=== PATIENT | male | born 1945 ===

== ENCOUNTER 2017-05-12 08:32 | Observation (INO) | payer MEDICARE ==
[2017-05-12] MEDS ORDERED: Nitroglycerin 2% Ointment Foilpak UD TOP ONE (09:17)
[2017-05-12] MEDS: Nitroglycerin 2% 15 INCH/30 GM TUBE TOP STA ×2 (09:21→09:42)
--- NOTE | 2017-05-12 09:29 | ED PDOC ---
HPI: Chest Pain Time Seen by Provider: 05/12/17 09:00 Chief Complaint (Nursing): Chest Pain Chief Complaint (Provider): Substernal Chest Pain History Per: Patient History/Exam Limitations: no limitations Onset/Duration Of Symptoms: Days (x24 hours) Current Symptoms Are (Timing): Still Present Pain Scale Rating Of: 5 Quality: "Pain" Associated Symptoms: denies: Nausea, Diaphoresis Modifying Factors: None Alleviating Factors: None Additional Complaint(s): Joseph Madera, a 71 year old male, presents to the ED complaining of substernal chest pain that radiates to the left arm x24 hours. The patient reports that the pain started at sleep and had been intermittent. denies shortness of breath, nausea, diaphoresis. Past Medical History Reviewed: Historical Data, Nursing Documentation, Vital Signs Vital Signs: Last Vital Signs Temp Pulse Resp BP Pulse Ox 98 05/12/17 09:37 - Medical History PMH: Arthritis - Surgical History Surgical History: No Surg Hx - Family History Family History: States: Unknown Family Hx - Social History Current smoker - smoking cessation education provided: No Ex-Smoker (has not smoked in the last 12 months): No Alcohol: None Drugs: Denies - Immunization History Hx Tetanus Toxoid Vaccination: No - Home Medications Home Medications: Ambulatory Orders Medication Instructions Recorded No Known Home Med 05/12/17 - Allergies Allergies/Adverse Reactions: Allergies Allergy/AdvReac Type Severity Reaction Status Date / Time No Known Allergies Allergy Verified 05/12/17 08:42 Review of Systems ROS Statement: Except As Marked, All Systems Reviewed And Found Negative Cardiovascular: Positive for: Chest Pain (substernal chest pain radiating to left arm) Respiratory: Negative for: Shortness of Breath Gastrointestinal: Negative for: Nausea Physical Exam - Reviewed Nursing Documentation Reviewed: Yes Vital Signs Reviewed: Yes - Physical Exam Appears: Positive for: Non-toxic, No Acute Distress Head Exam: Positive for: ATRAUMATIC, NORMAL INSPECTION, NORMOCEPHALIC Skin: Positive for: Normal Color, Warm, Dry. Negative for: Rash Eye Exam: Positive for: Normal appearance, EOMI, PERRL. Negative for: Nystagmus ENT: Positive for: Normal ENT Inspection. Negative for: Nasal Congestion, Tonsillar Exudate, Tonsillar Swelling Neck: Positive for: Normal, Painless ROM, Supple Cardiovascular/Chest: Positive for: Regular Rate, Rhythm, Chest Non Tender. Negative for: Tachycardia Respiratory: Positive for: Normal Breath Sounds. Negative for: Rales, Rhonchi, Wheezing, Respiratory Distress Gastrointestinal/Abdominal: Positive for: Normal Exam, Bowel Sounds, Soft. Negative for: Tenderness, Mass, Guarding, Rebound Back: Positive for: Normal Inspection. Negative for: L CVA Tenderness, R CVA Tenderness Lymphatic: Positive for: Normal Exam. Negative for: Adenopathy Neurologic/Psych: Positive for: Alert, Oriented, Gait - ECG O2 Sat by Pulse Oximetry: 98 (RA) Pulse Ox Interpretation: Normal Medical Decision Making Medical Decision Makin Initial Plan 71 y/o female presenting with chest pain r/o CAD r/o ACS Initial Plan: * EKG * CMP * Troponin * Udip * CBC * CXR * Aspirin 325mg PO * Nitro-Bid 20% 1 inch TOP * Admit 0923 * Reevaluation Scribe Attestation Documented by Natividad Barnes acting as a scribe for José Luis Gaston MD. Provider Attestation All medical record entries made by the Scribe were at my direction and personally dictated by me. I have reviewed the chart and agree that the record accurately reflects my personal performance of the history, physical exam, medical decision making, and the department course for this patient. I have also personally directed, reviewed, and agree with the discharge instructions and disposition. Disposition - Clinical Impression Clinical Impression: Chest pain - Patient ED Disposition Is Patient to be Admitted: Yes - Disposition Disposition Time: 09:39 Condition: FAIR Forms: [employer] (Macedonian) - Pt Status Changed To: Hospital Disposition Of: Observation - POA Present On Arrival: None
[2017-05-12] MEDS ORDERED: Nitroglycerin 2% Ointment Foilpak UD TOP STA (09:35)
[2017-05-12 10:14] LABS: BASO % 0.3 % (0.0-2.0); EOS # 0.3 K/uL (0.0-0.7); EOS % 3.3 % (0.0-4.0); HEMATOCRIT 45.2 % (35.0-51.0); LYMPH # 3.2 K/uL (1.0-4.3); LYMPH % 35.2 % (20.0-40.0); MEAN CELL VOLUME 84.8 fl (80.0-94.0); MEAN CORPUSCULAR HEMOGLOBIN 27.4 pg (27.0-31.0); MEAN CORPUSCULAR HGB CONC 32.3 g/dL (33.0-37.0); MEAN PLATELET VOLUME 8.5 fl (7.2-11.7); MONO # 0.9 K/uL (0.0-0.8); MONO % 9.5 % (0.0-10.0); NEUT # 4.7 K/uL (1.8-7.0); NEUT % 51.7 % (50.0-75.0); NRBC % 0.2 % (0.0-0.0); RED CELL DISTRIBUTION WIDTH 13.5 % (11.5-14.5); WHITE BLOOD COUNT 9.2 K/uL (4.8-10.8)
[2017-05-12 10:22] LABS: ALKALINE PHOSPHATASE 121 U/L (38-126); ALT/SGPT 35 U/L (21-72); AST/SGOT 36 U/L (17-59); BILIRUBIN,TOTAL 0.7 mg/dl (0.2-1.3); CALCIUM 9.5 mg/dL (8.4-10.2); CARBON DIOXIDE 22 mmol/L (22-30); CHLORIDE 107 mmol/L (98-107); GFR AFRICAN-AMERICAN > 60; GLUCOSE,RANDOM 105 mg/dL (75-110); POTASSIUM 4.5 MMOL/L (3.6-5.0); SODIUM 141 mmol/l (132-148); TOTAL PROTEIN 8.4 G/DL (6.3-8.2)
[2017-05-12 10:37] LABS: ALB/GLOB RATIO 1.1 (1.0-2.1); BLOOD UREA NITROGEN 16 mg/dl (9-20)
--- NOTE | 2017-05-12 11:10 | CP.PCM.CON ---
History of Present Illness - History of Present Illness History of Present Illness: 71 y/o h/m admitted with chest pain pt had ?upset stomach? relieved by TUMS on 05/10 This AM while in bed developed chest discomfort that radiated to his left arm No pains at present EKG: sinus rhythm w/ PVC's Troponin: neg x 1 No PMH has not seen MD in 20 yrs on no meds Past Patient History - Past Social History Alcohol: None Drugs: Denies - MUSCULOSKELETAL/RHEUMATOLOGICAL Hx Musculoskeletal Disorders: Yes - PSYCHIATRIC Hx Substance Use: No - SURGICAL HISTORY Hx Surgeries: No - ANESTHESIA Hx Anesthesia: No Meds Allergies/Adverse Reactions: Allergies Allergy/AdvReac Type Severity Reaction Status Date / Time No Known Allergies Allergy Verified 05/12/17 08:42 Physical Exam - Constitutional Appears: Well - Head Exam Head Exam: NORMAL INSPECTION - Eye Exam Eye Exam: Normal appearance - ENT Exam ENT Exam: Normal Exam - Neck Exam Neck exam: Positive for: Normal Inspection - Respiratory Exam Respiratory Exam: NORMAL BREATHING PATTERN - Cardiovascular Exam Cardiovascular Exam: REGULAR RHYTHM - GI/Abdominal Exam GI & Abdominal Exam: Normal Bowel Sounds, Soft. absent: Tenderness Results - Vital Signs Recent Vital Signs: Last Vital Signs Temp 97.8 F 05/12/17 10:50 Pulse 86 05/12/17 10:50 Resp BP 122/83 05/12/17 10:50 Pulse Ox 98 05/12/17 09:40 - Labs Result Diagrams: 05/12/17 10:00 05/12/17 10:00 Labs: Laboratory Results - last 24 hr 05/12/17 05/12/17 10:00 10:00 WBC 9.2 RBC 5.33 Hgb 14.6 Hct 45.2 MCV 84.8 MCH 27.4 MCHC 32.3 L RDW 13.5 Plt Count 187 MPV 8.5 Neut % (Auto) 51.7 Lymph % (Auto) 35.2 [place] % (Auto) 9.5 Eos % (Auto) 3.3 Baso % (Auto) 0.3 Neut # 4.7 Lymph # 3.2 [place] # 0.9 H Eos # 0.3 Baso # 0.0 Sodium 141 Potassium 4.5 Chloride 107 Carbon Dioxide 22 Anion Gap 17 BUN 16 Creatinine 0.8 Est GFR ( Amer) > 60 Est GFR (Non-Af Amer) > 60 Random Glucose 105 Calcium 9.5 Total Bilirubin 0.7 AST 36 ALT 35 Alkaline Phosphatase 121 Troponin I 0.0380 Total Protein 8.4 H Albumin 4.4 Globulin 4.0 H Albumin/Globulin Ratio 1.1 Assessment & Plan (1) Chest pain Assessment and Plan: Pt to be kept for observation will follow Troponins and EKG's Status: Acute
--- NOTE | 2017-05-12 13:25 | RAD ---
HISTORY: Chest pain COMPARISON: No prior. TECHNIQUE: Chest PA and lateral FINDINGS: LUNGS: Poor inspiration with low lung volumes, crowded bronchovascular markings and mild bibasilar atelectasis . Developing lower lobe infiltrates could be excluded with followup radiographs. PLEURA: No significant pleural effusion identified. No pneumothorax apparent. CARDIOVASCULAR: Normal. OSSEOUS STRUCTURES: No significant abnormalities. VISUALIZED UPPER ABDOMEN: Normal. OTHER FINDINGS: None. IMPRESSION: Poor inspiration with low lung volumes, crowded bronchovascular markings and mild bibasilar atelectasis . Developing lower lobe infiltrates could be excluded with followup radiographs.
--- NOTE | 2017-05-12 16:51 | CP.PCM.PN ---
Subjective - Date & Time of Evaluation Date of Evaluation: 05/12/17 Time of Evaluation: 16:49 - Subjective Subjective: 2nd Troponin -- Postive @ 15.4 pt will need consult with interventional cardiology stable at this time Objective - Vital Signs/Intake and Output Vital Signs (last 24 hours): Temp Pulse Resp BP Pulse Ox 98.1 F 76 20 130/75 98 05/12/17 15:28 05/12/17 15:28 05/12/17 15:28 05/12/17 15:28 05/12/17 15:28 - Labs Labs: 05/12/17 10:00 05/12/17 10:00 Assessment and Plan (1) Chest pain Status: Acute
[2017-05-12] MEDS ORDERED: Enoxaparin 40 mg Syringe SC SCH ×2 (17:59→20:00)
[2017-05-12 18:05] VITALS: BMI 28.0
--- NOTE | 2017-05-12 18:14 | CP.CCUPN ---
CCU Subjective - Physician Review Subjective (Free Text): ICU admission overnight for acute NSTEMI: 71 M admitted today for chest pain, with radiation to left arm, but preceded by abdominal discomfort several days earlier; found to have significant elevated Trop to 15.3. Presently awake and alert, denies any chest discomfort at bed rest , denies any N/V, dizziness, palpitations, SOB, headaches, diaphoresis, back discomfort, abdominal discomfort. Transferred to [address] [place] [address] bed from ER approx. 5 hours ago with 1st Trop negative, but 2nd Trop now high. Initial EKG: sinus 81 with frequent PVCs and anterior wall ST depressions and T inversions. CXR essentially negative with clear lung diaz for an elderly male. Other vitals and I/O's reviewed. On Nasal oxygen 2 LPM at 97% SPO2. ALLERGIES: NKDA Home Meds: none ROS: No other pertinent negs or positives on 10+ system review. PMSFH: Osteoarthritis. Has not seen or seeked medical care in over 20 years. All Nursing and physician documentation reviewed to date; no new pertinent info noted relevant to current medical problems. IMPRESSION / MAJOR PROBLEMS NOW: 1. ACS with Acute NSTEMI PLAN: 1. ASA, topical NTP given in ER; ASAA continued for now, seen by Interventional Cardio and advised transfer to ICU for monitoring. Started on therapeutic Lovenox, Statin, BBs. 2. Possible coronary angiography study in AM. 3. ECHO 4. Monitor serial Trops, repeat EKG now. CCU Objective - Vital Signs / Intake & Output Vital Signs (Last 4 hours): Vital Signs Temp Pulse Resp BP Pulse Ox 05/12/17 15:28 98.1 F 76 20 130/75 98 Intake and Output (Last 8hrs): Intake & Output 05/12/17 05/12/17 05/12/17 06:59 14:59 22:59 Weight 160 lb 195 lb 1.6 oz - Physical Exam Head: Positive for: Normocephalic Pupils: Positive for: PERRL Extroacular Muscles: Positive for: EOMI Conjunctiva: Positive for: Normal. Negative for: Icteric Mouth: Positive for: Moist Mucous Membranes Neck: Positive for: Normal Range of Motion. Negative for: JVD Respiratory/Chest: Positive for: Clear to Auscultation. Negative for: Wheezes, Rales Cardiovascular: Positive for: Normal S1, S2, Irregular Rhythm, Peripheal Pulses Present. Negative for: Murmurs, Rub Abdomen: Positive for: Normal Bowel Sounds. Negative for: Tenderness, Distention, Mass/Organomegaly Lower Extremity: Positive for: NORMAL PULSES. Negative for: Edema, CALF TENDERNESS, Cyanosis Neurological: Positive for: GCS=15, Motor Func Grossly Intact, Normal Sensory Function Skin: Positive for: Warm, Dry. Negative for: Rashes Psychiatric: Positive for: Alert, Oriented x 3, Normal Affect, Normal Mood - Medications Active Medications: Active Medications Generic Name Dose Route Start Last Admin Trade Name Freq PRN Reason Stop Dose Admin Aspirin 81 mg 05/13/17 09:00 Aspirin Chewable PO DAILY [facility] Atorvastatin Calcium 20 mg 05/12/17 22:00 Lipitor PO HS [facility] Enoxaparin Sodium 85 mg 05/12/17 18:04 Lovenox SC Q12 [facility] Protocol Metoprolol Tartrate 25 mg 05/12/17 21:00 Lopressor PO Q12 [facility] - Patient Studies Lab Studies: Lab Studies 05/12/17 05/12/17 05/12/17 Range/Units 16:00 15:00 10:00 WBC (4.8-10.8) K/uL RBC (4.40-5.90) Mil/uL Hgb (12.0-18.0) g/dL Hct (35.0-51.0) % MCV (80.0-94.0) fl MCH (27.0-31.0) pg MCHC (33.0-37.0) g/dL RDW (11.5-14.5) % Plt Count (130-400) K/uL MPV (7.2-11.7) fl Neut % (Auto) (50.0-75.0) % Lymph % (Auto) (20.0-40.0) % [place] % (Auto) (0.0-10.0) % Eos % (Auto) (0.0-4.0) % Baso % (Auto) (0.0-2.0) % Neut # (1.8-7.0) K/uL Lymph # (1.0-4.3) K/uL [place] # (0.0-0.8) K/uL Eos # (0.0-0.7) K/uL Baso # (0.0-0.2) K/uL Sodium 141 (132-148) mmol/l Potassium 4.5 (3.6-5.0) MMOL/L Chloride 107 (98-107) mmol/L Carbon Dioxide 22 (22-30) mmol/L Anion Gap 17 (10-20) BUN 16 (9-20) mg/dl Creatinine 0.8 (0.8-1.5) mg/dl Est GFR ( Amer) > 60 Est GFR (Non-Af Amer) > 60 Random Glucose 105 (75-110) mg/dL Calcium 9.5 (8.4-10.2) mg/dL Total Bilirubin 0.7 (0.2-1.3) mg/dl AST 36 (17-59) U/L ALT 35 (21-72) U/L Alkaline Phosphatase 121 (38-126) U/L Troponin I 15.3000 H* Cancelled 0.0380 (0.00-0.120) ng/mL Total Protein 8.4 H (6.3-8.2) G/DL Albumin 4.4 (3.5-5.0) g/dL Globulin 4.0 H (2.2-3.9) gm/dL Albumin/Globulin Ratio 1.1 (1.0-2.1) 05/12/17 Range/Units 10:00 WBC 9.2 (4.8-10.8) K/uL RBC 5.33 (4.40-5.90) Mil/uL Hgb 14.6 (12.0-18.0) g/dL Hct 45.2 (35.0-51.0) % MCV 84.8 (80.0-94.0) fl MCH 27.4 (27.0-31.0) pg MCHC 32.3 L (33.0-37.0) g/dL RDW 13.5 (11.5-14.5) % Plt Count 187 (130-400) K/uL MPV 8.5 (7.2-11.7) fl Neut % (Auto) 51.7 (50.0-75.0) % Lymph % (Auto) 35.2 (20.0-40.0) % [place] % (Auto) 9.5 (0.0-10.0) % Eos % (Auto) 3.3 (0.0-4.0) % Baso % (Auto) 0.3 (0.0-2.0) % Neut # 4.7 (1.8-7.0) K/uL Lymph # 3.2 (1.0-4.3) K/uL [place] # 0.9 H (0.0-0.8) K/uL Eos # 0.3 (0.0-0.7) K/uL Baso # 0.0 (0.0-0.2) K/uL Sodium (132-148) mmol/l Potassium (3.6-5.0) MMOL/L Chloride (98-107) mmol/L Carbon Dioxide (22-30) mmol/L Anion Gap (10-20) BUN (9-20) mg/dl Creatinine (0.8-1.5) mg/dl Est GFR ( Amer) Est GFR (Non-Af Amer) Random Glucose (75-110) mg/dL Calcium (8.4-10.2) mg/dL Total Bilirubin (0.2-1.3) mg/dl AST (17-59) U/L ALT (21-72) U/L Alkaline Phosphatase (38-126) U/L Troponin I (0.00-0.120) ng/mL Total Protein (6.3-8.2) G/DL Albumin (3.5-5.0) g/dL Globulin (2.2-3.9) gm/dL Albumin/Globulin Ratio (1.0-2.1) Laboratory Results - last 24 hr 05/12/17 05/12/17 05/12/17 10:00 10:00 15:00 WBC 9.2 RBC 5.33 Hgb 14.6 Hct 45.2 MCV 84.8 MCH 27.4 MCHC 32.3 L RDW 13.5 Plt Count 187 MPV 8.5 Neut % (Auto) 51.7 Lymph % (Auto) 35.2 [place] % (Auto) 9.5 Eos % (Auto) 3.3 Baso % (Auto) 0.3 Neut # 4.7 Lymph # 3.2 [place] # 0.9 H Eos # 0.3 Baso # 0.0 Sodium 141 Potassium 4.5 Chloride 107 Carbon Dioxide 22 Anion Gap 17 BUN 16 Creatinine 0.8 Est GFR ( Amer) > 60 Est GFR (Non-Af Amer) > 60 Random Glucose 105 Calcium 9.5 Total Bilirubin 0.7 AST 36 ALT 35 Alkaline Phosphatase 121 Troponin I 0.0380 Cancelled Total Protein 8.4 H Albumin 4.4 Globulin 4.0 H Albumin/Globulin Ratio 1.1 05/12/17 16:00 WBC RBC Hgb Hct MCV MCH MCHC RDW Plt Count MPV Neut % (Auto) Lymph % (Auto) [place] % (Auto) Eos % (Auto) Baso % (Auto) Neut # Lymph # [place] # Eos # Baso # Sodium Potassium Chloride Carbon Dioxide Anion Gap BUN Creatinine Est GFR ( Amer) Est GFR (Non-Af Amer) Random Glucose Calcium Total Bilirubin AST ALT Alkaline Phosphatase Troponin I 15.3000 H* Total Protein Albumin Globulin Albumin/Globulin Ratio Radiology Interpretations (Free Text): see above EKG/Cardiology Studies: see above Results Reviewed to Date: Yes Review of Systems - Review of Systems All systems: reviewed and no additional remarkable complaints except (as above) Critical Care Progress Note - Nutrition Nutrition: Nutrition Category Date Time Status Heart Healthy Diet [DIET] Diets 05/12/17 Lunch Active
[2017-05-12] MEDS: Enoxaparin 100 mg Syringe SC SCH ×2 (18:27→21:00)
[2017-05-13 04:09] VITALS: O2SAT 98
[2017-05-13 06:36] LABS: HEMATOCRIT 43.2 % (35.0-51.0); MEAN CELL VOLUME 83.8 fl (80.0-94.0); MEAN CORPUSCULAR HEMOGLOBIN 27.9 pg (27.0-31.0); MEAN CORPUSCULAR HGB CONC 33.3 g/dL (33.0-37.0); WHITE BLOOD COUNT 10.1 K/uL (4.8-10.8)
[2017-05-13 06:56] LABS: ALKALINE PHOSPHATASE 106 U/L (38-126); ALT/SGPT 41 U/L (21-72); AST/SGOT 97 U/L (17-59); BILIRUBIN,TOTAL 0.6 mg/dl (0.2-1.3); BLOOD UREA NITROGEN 17 mg/dl (9-20); CALCIUM 9.7 mg/dL (8.4-10.2); CARBON DIOXIDE 28 mmol/L (22-30); CHLORIDE 106 mmol/L (98-107); GFR AFRICAN-AMERICAN > 60; GLUCOSE,RANDOM 100 mg/dL (75-110); POTASSIUM 4.7 MMOL/L (3.6-5.0); SODIUM 142 mmol/l (132-148); TOTAL PROTEIN 8.1 G/DL (6.3-8.2)
[2017-05-13 07:13] LABS: THYROID STIMULATING HORMONE 1.27 mIU/ML (0.46-4.68)
--- NOTE | 2017-05-13 07:22 | CP.PCM.CON ---
History of Present Illness - History of Present Illness History of Present Illness: notified by Dr Lo yesterday regarding patient. discussed with nursing staff , EKG reviewed by me yeterday. GIven elevated troponin, and EKG with signifcant ischemia of the anterior wall ( suggestive of left main or proximal LAD) and PVCs I recommended full dose lovenox, ASA, statin, betablocker. trnsfer to ICU. given high risk features ( suggestive of surgical anatomy) plan is for cath today. Past Patient History - Past Medical History & Family History Past Medical History?: Yes - Past Social History Smoking Status: Former Smoker - CARDIAC Hx Cardiac Disorders: No - PULMONARY Hx Respiratory Disorders: No - NEUROLOGICAL Hx Neurological Disorder: No - HEENT Hx HEENT Problems: No - RENAL Hx Chronic Kidney Disease: No - ENDOCRINE/METABOLIC Hx Endocrine Disorders: No - HEMATOLOGICAL/ONCOLOGICAL Hx Blood Disorders: No Hx AIDS: No Hx Human Immunodeficiency Virus (HIV): No - INTEGUMENTARY Hx Dermatological Problems: No - MUSCULOSKELETAL/RHEUMATOLOGICAL Hx Musculoskeletal Disorders: Yes Hx Arthritis: Yes Hx Falls: No - GASTROINTESTINAL Hx Gastrointestinal Disorders: No - GENITOURINARY/GYNECOLOGICAL Hx Genitourinary Disorders: No - PSYCHIATRIC Hx Psychophysiologic Disorder: No Hx Substance Use: No - SURGICAL HISTORY Hx Surgeries: No - ANESTHESIA Hx Anesthesia: Yes Hx Anesthesia Reactions: No Hx Malignant Hyperthermia: No Has any member of the family had a problem w/ anesthesia?: No Meds Allergies/Adverse Reactions: Allergies Allergy/AdvReac Type Severity Reaction Status Date / Time No Known Allergies Allergy Verified 05/12/17 08:42 - Medications Medications: Current Medications Aspirin (Aspirin Chewable) 81 mg PO DAILY [facility] Atorvastatin Calcium (Lipitor) 20 mg PO HS [facility] Last Admin: 05/12/17 22:00 Dose: 20 mg Enoxaparin Sodium (Lovenox) 85 mg SC Q12 [facility] PRN Reason: Protocol Last Admin: 05/12/17 21:00 Dose: Not Given Metoprolol Tartrate (Lopressor) 25 mg PO Q12 [facility] Last Admin: 05/12/17 21:00 Dose: 25 mg Results - Vital Signs Recent Vital Signs: Last Vital Signs Temp 97.4 F L 05/13/17 00:00 Pulse 62 05/13/17 04:00 Resp 23 05/13/17 04:00 BP 137/83 05/13/17 04:00 Pulse Ox 98 05/13/17 04:00 - Labs Result Diagrams: 05/13/17 05:40 05/13/17 05:40 Labs: Laboratory Results - last 24 hr 05/12/17 05/12/17 05/12/17 10:00 10:00 11:00 WBC 9.2 RBC 5.33 Hgb 14.6 Hct 45.2 MCV 84.8 MCH 27.4 MCHC 32.3 L RDW 13.5 Plt Count 187 MPV 8.5 Neut % (Auto) 51.7 Lymph % (Auto) 35.2 [place] % (Auto) 9.5 Eos % (Auto) 3.3 Baso % (Auto) 0.3 Neut # 4.7 Lymph # 3.2 [place] # 0.9 H Eos # 0.3 Baso # 0.0 Sodium 141 Potassium 4.5 Chloride 107 Carbon Dioxide 22 Anion Gap 17 BUN 16 Creatinine 0.8 Est GFR ( Amer) > 60 Est GFR (Non-Af Amer) > 60 Random Glucose 105 Calcium 9.5 Total Bilirubin 0.7 AST 36 ALT 35 Alkaline Phosphatase 121 Troponin I 0.0380 17.0000 H* Total Protein 8.4 H Albumin 4.4 Globulin 4.0 H Albumin/Globulin Ratio 1.1 Triglycerides Cholesterol LDL Cholesterol Direct HDL Cholesterol TSH 3rd Generation 05/12/17 05/12/17 05/13/17 15:00 16:00 05:40 WBC RBC Hgb Hct MCV MCH MCHC RDW Plt Count MPV Neut % (Auto) Lymph % (Auto) [place] % (Auto) Eos % (Auto) Baso % (Auto) Neut # Lymph # [place] # Eos # Baso # Sodium Potassium Chloride Carbon Dioxide Anion Gap BUN Creatinine Est GFR ( Amer) Est GFR (Non-Af Amer) Random Glucose Calcium Total Bilirubin AST ALT Alkaline Phosphatase Troponin I Cancelled 15.3000 H* Total Protein Albumin Globulin Albumin/Globulin Ratio Triglycerides 181 H Cholesterol 228 H LDL Cholesterol Direct 154 H HDL Cholesterol 33 TSH 3rd Generation 1.27 05/13/17 05/13/17 05:40 05:40 WBC 10.1 RBC 5.16 Hgb 14.4 Hct 43.2 MCV 83.8 MCH 27.9 MCHC 33.3 RDW 13.0 Plt Count 192 MPV Neut % (Auto) Lymph % (Auto) [place] % (Auto) Eos % (Auto) Baso % (Auto) Neut # Lymph # [place] # Eos # Baso # Sodium 142 Potassium 4.7 Chloride 106 Carbon Dioxide 28 Anion Gap 13 BUN 17 Creatinine 0.8 Est GFR ( Amer) > 60 Est GFR (Non-Af Amer) > 60 Random Glucose 100 Calcium 9.7 Total Bilirubin 0.6 AST 97 H D ALT 41 Alkaline Phosphatase 106 Troponin I Total Protein 8.1 Albumin 4.1 Globulin 4.0 H Albumin/Globulin Ratio 1.0 Triglycerides Cholesterol LDL Cholesterol Direct HDL Cholesterol TSH 3rd Generation
[2017-05-13 07:49] VITALS: BP 140/88; PULSE 63; RESP 17; TEMP 98
[2017-05-13] MEDS: Enoxaparin 100 mg Syringe SC SCH (09:00)
--- NOTE | 2017-05-13 11:05 | CARD ---
APPROVED REPORT EKG Measurement Heart [id number] <Conclusion> Normal sinus rhythm Possible Left atrial enlargement Borderline ECG
--- NOTE | 2017-05-13 11:09 | CARD ---
APPROVED REPORT EKG Measurement Heart [id number] ID [id number] <Conclusion> Sinus rhythm with frequent premature ventricular complexes ST & T wave abnormality, consider anterior ischemia Abnormal ECG
--- NOTE | 2017-05-13 11:57 | CP.PCM.HP ---
History of Present Illness - History of Present Illness History of Present Illness: This is a 71 y/o male admitted for chest pain radiating to the arm. Claims that he had chest discomfort for the past few days but never sought medical attention. In fact he has not seen a Physician for more than 20 years. Initial troponin was normal. EKG showed anterior ST T wave depressions. Medical hx: OA Present on Admission - Present on Admission Any Indicators Present on Admission: No History of DVT/PE: No History of Uncontrolled Diabetes: No Urinary Catheter: No Decubitus Ulcer Present: No Review of Systems - Cardiovascular Cardiovascular: Chest Pain at Rest Past Patient History - Past Medical History & Family History Past Medical History?: Yes - Past Social History Smoking Status: Former Smoker - CARDIAC Hx Cardiac Disorders: No - PULMONARY Hx Respiratory Disorders: No - NEUROLOGICAL Hx Neurological Disorder: No - HEENT Hx HEENT Problems: No - RENAL Hx Chronic Kidney Disease: No - ENDOCRINE/METABOLIC Hx Endocrine Disorders: No - HEMATOLOGICAL/ONCOLOGICAL Hx Blood Disorders: No Hx AIDS: No Hx Human Immunodeficiency Virus (HIV): No - INTEGUMENTARY Hx Dermatological Problems: No - MUSCULOSKELETAL/RHEUMATOLOGICAL Hx Musculoskeletal Disorders: Yes Hx Arthritis: Yes Hx Falls: No - GASTROINTESTINAL Hx Gastrointestinal Disorders: No - GENITOURINARY/GYNECOLOGICAL Hx Genitourinary Disorders: No - PSYCHIATRIC Hx Psychophysiologic Disorder: No Hx Substance Use: No - SURGICAL HISTORY Hx Surgeries: No - ANESTHESIA Hx Anesthesia: Yes Hx Anesthesia Reactions: No Hx Malignant Hyperthermia: No Has any member of the family had a problem w/ anesthesia?: No Meds Allergies/Adverse Reactions: Allergies Allergy/AdvReac Type Severity Reaction Status Date / Time No Known Allergies Allergy Verified 05/12/17 08:42 Physical Exam - Head Exam Head Exam: NORMAL INSPECTION - Eye Exam Eye Exam: Normal appearance - ENT Exam ENT Exam: Mucous Membranes Moist - Respiratory Exam Respiratory Exam: Clear to Auscultation Bilateral - Cardiovascular Exam Cardiovascular Exam: Irregular Rhythm - GI/Abdominal Exam GI & Abdominal Exam: Normal Bowel Sounds - Neurological Exam Neurological exam: CN II-XII Intact, Oriented x3 - Psychiatric Exam Psychiatric exam: Normal Mood Results - Vital Signs Recent Vital Signs: Last Vital Signs Temp 98 F 05/13/17 06:00 Pulse 63 05/13/17 06:00 Resp 17 05/13/17 06:00 BP 140/88 05/13/17 06:00 Pulse Ox 98 05/13/17 06:00 - Labs Result Diagrams: 05/13/17 05:40 05/13/17 05:40 Labs: Laboratory Results - last 24 hr 05/12/17 05/12/17 05/12/17 11:00 15:00 16:00 WBC RBC Hgb Hct MCV MCH MCHC RDW Plt Count Sodium Potassium Chloride Carbon Dioxide Anion Gap BUN Creatinine Est GFR ( Amer) Est GFR (Non-Af Amer) Random Glucose Calcium Total Bilirubin AST ALT Alkaline Phosphatase Troponin I 17.0000 H* Cancelled 15.3000 H* Total Protein Albumin Globulin Albumin/Globulin Ratio Triglycerides Cholesterol LDL Cholesterol Direct HDL Cholesterol TSH 3rd Generation 05/13/17 05/13/17 05/13/17 05:40 05:40 05:40 WBC 10.1 RBC 5.16 Hgb 14.4 Hct 43.2 MCV 83.8 MCH 27.9 MCHC 33.3 RDW 13.0 Plt Count 192 Sodium 142 Potassium 4.7 Chloride 106 Carbon Dioxide 28 Anion Gap 13 BUN 17 Creatinine 0.8 Est GFR ( Amer) > 60 Est GFR (Non-Af Amer) > 60 Random Glucose 100 Calcium 9.7 Total Bilirubin 0.6 AST 97 H D ALT 41 Alkaline Phosphatase 106 Troponin I Total Protein 8.1 Albumin 4.1 Globulin 4.0 H Albumin/Globulin Ratio 1.0 Triglycerides 181 H Cholesterol 228 H LDL Cholesterol Direct 154 H HDL Cholesterol 33 TSH 3rd Generation 1.27 Assessment & Plan (1) CAD (coronary artery disease) Status: Acute (2) Chest pain Status: Acute - Assessment and Plan (Free Text) Plan: start ASA lipitor metoprolol Cardiology interventional Discussed with Dr Fernández.
--- NOTE | 2017-05-14 08:27 | PN ---
CRITICAL CARE PROGRESS NOTE DATE: SUBJECTIVE: The patient is seen and evaluated at the bedside. Events since admission reviewed. A 71-year-old male admitted on 05/12/2017, complaining of chest pain with radiation to left arm, preceded by abdominal discomfort, several days earlier, found to have significant elevated troponin 15.3, seen by Cardiology, consulted, recommended cardiac catheterization. The patient remained symptom-free overnight. PHYSICAL EXAMINATION: VITAL SIGNS: Afebrile; heart rate in the low 60s, regular; blood pressure 135 to 151 over 82 to 86; saturating 98%. HEENT: Examination of head, eyes, ears, nose and throat is unremarkable. CHEST: Bilateral breath sounds. Clear to auscultation. HEART: Rhythm regular. S1, S2, normal intensity. No S3, S4 gallop. No audible murmur. ABDOMEN: Bowel sounds present. Soft. EXTREMITIES: Without edema. NEUROLOGIC: Nonfocal. CURRENT MEDICATIONS: Aspirin 81 mg daily, Lipitor 20 mg daily, Lovenox 85 mg subcutaneous q. 12, and Lopressor 25 mg q. 12. LABORATORY DATA: WBC 10.1, hemoglobin 14.4, hematocrit 43.2, and platelet count 192. SMA-7; sodium 142, potassium 4.7, chloride 106, CO2 of 28, blood urea nitrogen 17, creatinine 0.8, calcium 9.7, total bilirubin 0.6, AST 97, ALT 41, and alkaline phosphatase 106. Troponin 0.0380, 17, and 15.3. Triglycerides 181, cholesterol 228, LDL 154, HDL 33. TSH 1.27. IMPRESSION: Acute coronary syndrome and hyperlipidemia. PLAN: The patient is transferred to [facility] for cardiac catheterization. Chang Martinez MD
== END 2017-05-13 07:50 | disposition short-term general hospital (02) ==
LOC: H.ER 08:32 → H.ERHOLD 09:45 → H.TEL 11:35 → H.ICU/CCU 18:53
PROVIDERS: ADMIT Family Medicine; ATTEND Family Medicine
DX: I25.10 Atherosclerotic heart disease of native coronary artery without angina pectoris (principal); I49.3 Ventricular premature depolarization; Z87.891 Personal history of nicotine dependence; M19.90 Unspecified osteoarthritis, unspecified site
CPT/HCPCS: 71020; 80053; 80061; 83036; 84443; 84484; 85025; 85027; 87081; 93005; 99285; G0378; J1650